=== PATIENT | female | born 1940 | race Caucasian/White ===

== ENCOUNTER 2019-07-04 10:32 | Observation (INO) ==
--- NOTE | 2019-07-04 10:58 | Emergency Department Note ---
ED Disposition Clinical Impression: Urinary tract infection, Renal insufficiency, Lower extremity weakness Disposition: Admitted as Observation Condition on Discharge: Serious Additional Instructions: This patient is accepted by Dr. Avendano of the hospitalist program at [facility] in [place] so she can be followed by her ems director. She will be temporarily admitted here until a bed is available at [facility]. Referrals: Oscar Vang [Primary Care Provider] - - Critical Care Critical Care Time: No Attestation: On , the high probability of a clinically significant, sudden or life threatening deterioration of the following system(s) required my full and direct attention, intervention and personal management. The time I documented below is in addition to time spent performing reported procedures but includes the following listed in this critical care notation. Medical Decision Making - Medical Records Medical records reviewed: Yes: I reviewed the patient's medical records. - Asher Inquiry Pt receiving controlled substance: No Vital Signs: 07/04/19 10:46 07/04/19 11:13 07/04/19 11:59 Temperature 97.8 F Temperature Source Oral Pulse Rate [Left Radial] 58 L 56 L 61 Respiratory Rate 18 Blood Pressure [Right Arm] 141/58 H 119/48 L 147/59 H Blood Pressure Mean [Right Arm] 85 71 88 Blood Pressure Source [Right Arm] Automatic Cuff Automatic Cuff Automatic Cuff Blood Pressure Position [Right Arm] Sitting Supine Supine 02 Sat by Pulse Oximetry 98 91 L 100 Oxygen Delivery Method Room Air Room Air Room Air 07/04/19 13:44 07/04/19 15:49 Temperature Temperature Source Pulse Rate [Left Radial] 68 65 Respiratory Rate Blood Pressure [Right Arm] 113/45 L 126/66 Blood Pressure Mean [Right Arm] 67 86 Blood Pressure Source [Right Arm] Automatic Cuff Automatic Cuff Blood Pressure Position [Right Arm] Sitting Sitting 02 Sat by Pulse Oximetry 98 98 Oxygen Delivery Method Room Air Room Air - Lab Data Lab results reviewed: Yes: I reviewed the patient's lab results. Lab Results 07/04/19 11:00: WBC 12.2 H, RBC 3.79 L, Hgb 11.5 L, Hct 35.5 L, MCV 93.7, MCH 30.4, MCHC 32.4, RDW 13.8, Plt Count 345, MPV 8.6, Neut % (Auto) 70.3, Lymph % (Auto) 18.5, [place] % (Auto) 7.8, Eos % (Auto) 2.8, Baso % (Auto) 0.6, Neut # (Auto) 8.5 H, Lymph # (Auto) 2.3, [place] # (Auto) 1.0, Eos # (Auto) 0.3, Baso # (Auto) 0.1 07/04/19 11:00: Sodium 135 L, Potassium 4.2, Chloride 102, Carbon Dioxide 23, Anion Gap 14.2, BUN 56 H, Creatinine 3.29 H, Estimated Creat Clear 21, Estimated GFR 14 L*, Est GFR ( Amer) 16 L*, Glucose 92, Calcium 9.4, Total Bilirubin 0.5, AST 17, ALT 22, Alkaline Phosphatase 64, Troponin I < 0.02, Total Protein 7.3, Albumin 3.0 L, Globulin 4.3 H, Albumin/Globulin Ratio 0.7 L, TSH 2.70 07/04/19 11:00: B-Natriuretic Peptide 31 07/04/19 11:00: Urine Color Yellow, Urine Appearance Clear, Urine pH 5.5, Ur Specific [place] 1.025, Urine Protein Trace, Urine Glucose (UA) Negative, Urine Ketones Negative, Urine Blood 1+, Urine Nitrate Negative, Urine Bilirubin Negative, Urine Urobilinogen 0.2, Ur Leukocyte Esterase 2+ A, Urine RBC 5-10, Urine WBC Tntc, Ur Squamous Epith Cells 3-5, Urine Bacteria 3+ Result diagrams: 07/04/19 11:00 07/04/19 11:00 Orders (Tests/Meds): ORDERS Category Date Time Status Urine Culture Stat Micro 07/04/19 11:00 Received Weakness HPI - General Chief complaint: Weakness Stated complaint: aO 06/29 feet and leg pain, weak Time Seen by Provider: 07/04/19 10:50 Mode of Arrival: Wheelchair Limitations: Physical Limitations Description of Symptoms (Recalled from ER Triage Doc. by RN): Pt states that she fell on Monday, denies any injury, states she feels "weak" and her feet feel numb - History of Present Illness HPI Narrative: 79-year old obese female fell from standing 3 days ago. Patient complains of generalized weakness worse in the lower extremities and numbness in the feet. MD Complaint: generalized weakness, focal weakness (And feet bilaterally), numbness (In feet bilaterally) Onset (ago): day(s) (3) Duration: constant Migration: none Severity: moderate Relieving factors: none Exacerbating factors: none Context: trauma/injury Associated symptoms: denies other symptoms - Related Data Home Medications Medication Instructions Recorded Confirmed Cefdinir [Omnicef 300mg Capsule] 300 mg PO BID 07/04/19 07/04/19 Lisinopril [Lisinopril 20mg Tab] 20 mg PO DAILY 07/04/19 07/04/19 Metoprolol Tartrate [Lopressor 100 mg PO DAILY 07/04/19 07/04/19 100mg Tablet] Allergies Allergy/AdvReac Type Severity Reaction Status Date / Time No Known Allergies Allergy Verified 07/04/19 10:50 [facility] History - Hepatitis A Screen Drug use history?: No High risk sexual behaviors?: No History of sexually transmitted infection?: No Currently employed?: No Childcare worker?: No Do you have indoor plumbing?: Yes Do you have electricity?: Yes Attestation statement:: This patient has been screened for Hepatitis A risk factors. I have reviewed the patient's past medical history: Yes Medical History: Reports:: Hypertension - Social History Alcohol Intake: never Occupational Status: retired ROS Obtained: Yes All systems reviewed & no additional complaints - Constitutional Constitutional: Reports fatigue, Reports malaise - Eyes Eyes: Reports system reviewed and no additional complaints, except as docu - ENT Ears, Nose, Mouth, and Throat: Reports system reviewed and no additional complaints, except as docu - Cardiovascular Cardiovascular: Reports system reviewed and no additional complaints, except as docu - Respiratory Respiratory: Yes system reviewed and no additional complaints, except as docu - Gastrointestinal Gastrointestingal: Reports: system reviewed and no additional complaints, except as docu - Genitourinary Female Genitourinary: Reports system reviewed and no additional complaints, except as docu - Musculoskeletal Musculoskeletal: Reports back pain, Reports muscle weakness - Integumentary/Breasts Skin/Breast: Reports system reviewed and no additional complaints, except as docu - Neurologic Neurologic: Reports focal weakness (To lower extremities bilaterally equally), Reports numbness (Feet bilaterally) - Endocrine Endocrine: Reports system reviewed and no additional complaints, except as docu - Hematologic/Lymphatic Henatologic/Lymphatic: Reports system reviewed and no additional complaints, except as docu - Allergic/Immunologic Allergic/Immunologic: Reports system reviewed and no additional complaints, except as docu Physical Exam - General General appearance: alert, in no apparent distress - Head Head exam: atraumatic, normocephalic, normal inspection - Eye Eye exam: Present: normal appearance, PERRL, EOMI - ENT ENT exam: Present: normal exam, normal oropharynx, mucous membranes moist - Chest Chest inspection: Present: normal inspection, symmetric chest wall rise. Absent: tenderness - Respiratory Respiratory exam: Present: normal lung sounds bilaterally. Absent: respiratory distress - Cardiovascular Cardiovascular exam: Present: regular rate, normal rhythm, normal heart sounds. Absent: JVD - Abdominal Exam Abdominal exam: Present: soft, normal bowel sounds. Absent: distention, tenderness, guarding, rebound, rigidity - Rectal Exam Rectal exam: Present: normal inspection, normal rectal tone. Absent: black stool, bloody stool, fecal impaction, hemorrhoids, mass, tenderness - Extremities Exam Extremities exam: Present: normal inspection, full ROM, normal capillary refill, pedal edema. Absent: tenderness, calf tenderness - Back Exam Back exam: Present: normal inspection. Absent: tenderness - Neurological Exam Neurological exam: Present: alert, oriented X3, CN II-XII intact, reflexes normal. Absent: motor sensory deficit
[2019-07-04 11:19] LABS: Basophils # 0.1 K/mm3 (0-0.2); Basophils % 0.6 % (0.1-2.0); Eosinophils # 0.3 K/mm3 (0.0-0.4); Eosinophils % 2.8 % (0.1-12.0); Hematocrit 35.5 % (37.0-47.0); Hemoglobin 11.5 g/dL (12.2-16.2); Lymphocytes # 2.3 K/mm3 (0.7-4.5); Lymphocytes % 18.5 % (10-50); Mean Corpuscular HGB Conc 32.4 g/dL (31.8-35.4); Mean Corpuscular Volume 93.7 fl (81-99); Mean Platelet Volume 8.6 fl (7.4-10.4); Monocytes % 7.8 % (1.7-9.3); Neutrophils # 8.5 K/mm3 (1.8-7.8); Neutrophils % 70.3 % (37.0-80.0); Platelet Count 345 K/mm3 (142-424); Red Blood Count 3.79 M/mm3 (4.20-5.40); Red Cell Distribution Width 13.8 % (11.5-17.5); White Blood Count 12.2 K/mm3 (4.8-10.8)
[2019-07-04 11:43] LABS: Alanine Aminotransferase 22 U/L (12-78); Albumin/Globulin Ratio 0.7 (1.1-1.8); Alkaline Phosphatase 64 U/L (46-116); Anion Gap 14.2 mEq/L (5-15); Aspartate Amino Transferase 17 U/L (15-37); Bilirubin,Total 0.5 mg/dL (0.2-1.0); Blood Urea Nitrogen 56 mg/dL (7-18); Calcium 9.4 mg/dL (8.5-10.1); Carbon Dioxide 23 mmol/L (21.0-32.0); Chloride 102 mmol/L (98-107); Globulin 4.3 gm/dl (1.3-3.2); Glucose 92 mg/dL (74-106); Sodium 135 mmol/L (136-145); Total Protein,Serum 7.3 gm/dL (6.4-8.2)
[2019-07-04 12:16] LABS: Microscopic, Urine URINE MICROSCOPIC (MICROSCOPIC)
[2019-07-04 12:27] LABS: Appearance,Urine CLEAR (Clear); Bilirubin,Urine Negative (Negative); Blood, Urine 1+ (Negative); Color,Urine YELLOW (Yellow); Glucose,Urine (UA) Negative (Negative); Ketones,Urine Negative (Negative); Leukocyte Esterase,Urine 2+ (Negative); PH,Urine 5.5 (5.0-8.5); Protein,Urine TRACE (Negative); Specific Gravity, Urine 1.025 (1.005-1.030); Urobilinogen,Urine 0.2 EU/dl (0.2)
[2019-07-04 12:46] LABS: Bacteria,Urine 3+ /lpf; WBC,Urine TNTC #/hpf (0-3)
--- NOTE | 2019-07-04 17:48 | History & Physical Report ---
*Admission Date: 07/04/19 *Chief complaint: UTI, weakness *History of present illness: Kera is a 79-year-old female with reported history of some chronic kidney disease, unknown stage, and hypertension who presented to the ER due to worsening weakness over the past week. She states that over the weekend she felt more weak and actually had a fall. She initially went to [facility] where she was diagnosed with a UTI. She additionally had a CT scan of her abdomen and pelvis. They initiated her on oral Bactrim and sent her home for treatment of her UTI. She states that after getting home she has not gotten up from her chair other than to go to the bathroom and a bedside commode. She is continue to take her lisinopril, Bactrim, had poor p.o. fluid intake. Her family at bedside states her urine has been dark through most of the week. She additionally has had some swelling and edema in her lower extremities worse over the past week. She presented today to [facility] due to persistent weakness. On initial assessment to the ER she stated her feet have been feeling numb and painful. Her initial work-up was concerning for UA positive for leuk esterase and nitrite. Significant YULIANA with elevated BUN and creatinine. She was started on broad-spectrum antibiotics and IV fluids. Initially [facility] was contacted for possible transfer and assessment by yard laborer. They were unable to accept the patient hadat this time so patient was admitted to medicine for further management awaiting possible transfer. On assessment, patient is otherwise hemodynamically stable. Denies any shortness of breath or chest pain. Has light yellow urine in her Goel which is improved since IV hydration. Aside from YULIANA and UTI findings, patient otherwise stable. She states she would prefer to stay here for treatment if possible. Denies nausea, vomiting, chest pain, shortness of breath. May have had some loose stools after starting antibiotics over the past few days. Is alert and oriented to person and place and time. [facility] History I have reviewed the patient's past medical history: Yes Medical History: Reports:: Hypertension Denies:: Congestive Heart Failure, Chronic Obstructive Pulmonary Disease (COPD) *Have you ever received a pneumonia vaccine?: No *Have you received a flu vaccine this season?: No - *Social History Alcohol Intake: never *Occupational Status:: retired Household Members: children *Travel in the last 8 weeks: None Family Hx:: Non-contributory Review of Systems - Review of Systems Review of systems:: pertinent systems reviewed and negative unless documented below - *Neurologic Reports localized weakness (To lower extremities bilaterally equally), Reports numbness (Feet bilaterally) Meds Home Medications Medication Instructions Recorded Confirmed Type Cefdinir [Omnicef 300mg Capsule] 300 mg PO BID 07/04/19 07/04/19 History Lisinopril [Lisinopril 20mg Tab] 20 mg PO HS 07/04/19 07/04/19 History Metoprolol Tartrate [Lopressor 100 mg PO HS 07/04/19 07/04/19 History 100mg Tablet] Allergies Allergy/AdvReac Type Severity Reaction Status Date / Time No Known Allergies Allergy Verified 07/04/19 10:50 Exam Vital signs and Labs for Last 24 Hours: Temp Pulse Resp BP Pulse Ox 98.4 F 80 18 135/57 L 100 07/04/19 17:16 07/04/19 17:16 07/04/19 17:16 07/04/19 17:16 07/04/19 17:16 Laboratory Results - last 24 hr 07/04/19 11:00: WBC 12.2 H, RBC 3.79 L, Hgb 11.5 L, Hct 35.5 L, MCV 93.7, MCH 30.4, MCHC 32.4, RDW 13.8, Plt Count 345, MPV 8.6, Neut % (Auto) 70.3, Lymph % (Auto) 18.5, [place] % (Auto) 7.8, Eos % (Auto) 2.8, Baso % (Auto) 0.6, Neut # (Auto) 8.5 H, Lymph # (Auto) 2.3, [place] # (Auto) 1.0, Eos # (Auto) 0.3, Baso # (Auto) 0.1 07/04/19 11:00: Sodium 135 L, Potassium 4.2, Chloride 102, Carbon Dioxide 23, Anion Gap 14.2, BUN 56 H, Creatinine 3.29 H, Estimated Creat Clear 21, Estimated GFR 14 L*, Est GFR ( Amer) 16 L*, Glucose 92, Calcium 9.4, Total Bilirubin 0.5, AST 17, ALT 22, Alkaline Phosphatase 64, Troponin I < 0.02, Total Protein 7.3, Albumin 3.0 L, Globulin 4.3 H, Albumin/Globulin Ratio 0.7 L, TSH 2.70 07/04/19 11:00: B-Natriuretic Peptide 31 07/04/19 11:00: Urine Color Yellow, Urine Appearance Clear, Urine pH 5.5, Ur Specific [place] 1.025, Urine Protein Trace, Urine Glucose (UA) Negative, Urine Ketones Negative, Urine Blood 1+, Urine Nitrate Negative, Urine Bilirubin Negative, Urine Urobilinogen 0.2, Ur Leukocyte Esterase 2+ A, Urine RBC 5-10, Urine WBC Tntc, Ur Squamous Epith Cells 3-5, Urine Bacteria 3+ I & O for Last 24 hours: Intake & Output 07/01/19 07/02/19 07/03/19 07/04/19 23:59 23:59 23:59 23:59 Weight 95.765 kg - Constitutional no acute distress, obese - *Routine HEENT Exam Head: Present: normocephalic Eye: Present: EOMI, PERRL ENT: Present: mucous membranes moist - *Routine Neck Exam Present: supple. Absent: lymphadenopathy - *Routine Respiratory Exam Present: CTA bilaterally - *Routine Cardiovascular Exam Present: RRR - *Routine Abdominal Exam Present: soft, normoactive bowel sounds. Absent: tenderness - *Routine Extremities Exam Present: edema (2+ to knees bilaterally). Absent: cyanosis, clubbing - Routine Back/Spine/Pelvis Exam Back/Spine: Absent: CVA tenderness - *Routine Skin Exam Present: warm. Absent: rash - *Routine Neurological Exam Present: alert, oriented X3 Assessment and Plan (1) YULIANA (acute kidney injury) Current visit: Yes Status: Acute Category: Medical Code(s): N17.9 - Acute kidney failure, unspecified Unclear etiology at this time however suspect prerenal versus nephrotoxins as an etiology. Patient had poor fluid intake, received IV contrast for an image earlier this week, was on Bactrim for an antibiotic which can have nephrotoxic effects, and continue her lisinopril. Suspect the combo of these therapies may have been detrimental to her kidney function. Will provide gentle rehydration and reassess kidney function every 12 for now. We will also obtain labs from [facility] from earlier this week to see how her kidney function has changed. Unknown baseline and status of CKD. At this time feel patient is within the ability of our institution to handle. Unless she has worsening kidney function, oliguria, and urea, will hold on transfer as it is her preference to stay local as this is closer to her family. (2) Hypertension Current visit: Yes Status: Chronic Qualifiers: Hypertension type: essential hypertension Qualified Code(s): I10 - Essential (primary) hypertension Category: Medical Code(s): I10 - Essential (primary) hypertension Hold lisinopril in setting of YULIANA. Continue metoprolol. (3) Class 2 obesity Current visit: Yes Status: Chronic Category: Medical Code(s): E66.9 - Obesity, unspecified Complicates all aspects of her care (4) Lower extremity weakness Current visit: Yes Status: Acute Qualifiers: Laterality: bilateral Qualified Code(s): R29.898 - Other symptoms and signs involving the musculoskeletal system Category: Medical Code(s): R29.898 - Other symptoms and signs involving the musculoskeletal system Worsening over the past week. Will obtain imaging from [facility]. PT consult placed, appreciate recommendations (5) Urinary tract infection Current visit: Yes Status: Acute Qualifiers: Urinary tract infection type: acute cystitis Category: Medical Code(s): N39.0 - Urinary tract infection, site not specified Initiated IV Zosyn. Urine culture obtained. We will also obtain results from [facility] from earlier this week. De-escalate antibiotics pending results and sensitivities - Assessment and plan all Dx Assessment and Plan for all problems:: 79-year-old female with unknown stage chronic kidney disease who presents with YULIANA and UTI. Treatment as per above. Patient's condition is guarded. Prognosis fair.
[2019-07-04 20:09] LABS: Anion Gap 13.1 mEq/L (5-15)
[2019-07-05 06:59] LABS: Basophils % 0.3 % (0.1-2.0); Eosinophils # 0.3 K/mm3 (0.0-0.4); Eosinophils % 2.8 % (0.1-12.0); Hematocrit 30.7 % (37.0-47.0); Lymphocytes # 1.5 K/mm3 (0.7-4.5); Lymphocytes % 17.2 % (10-50); Mean Corpuscular Volume 93.6 fl (81-99); Mean Platelet Volume 8.1 fl (7.4-10.4); Monocytes # 0.6 K/mm3 (0.1-1.0); Monocytes % 6.8 % (1.7-9.3); Neutrophils # 6.5 K/mm3 (1.8-7.8); Neutrophils % 72.9 % (37.0-80.0); Platelet Count 260 K/mm3 (142-424); Red Blood Count 3.28 M/mm3 (4.20-5.40); Red Cell Distribution Width 13.8 % (11.5-17.5); White Blood Count 8.9 K/mm3 (4.8-10.8)
[2019-07-05 07:06] LABS: Albumin Level 2.3 gm/dL (3.4-5.0); Albumin/Globulin Ratio 0.6 (1.1-1.8); Anion Gap 13.4 mEq/L (5-15); Bilirubin,Total 0.5 mg/dL (0.2-1.0); Calcium 8.6 mg/dL (8.5-10.1); Globulin 3.7 gm/dl (1.3-3.2)
[2019-07-05 07:10] LABS: Hemoglobin 9.9 g/dL (12.2-16.2)
--- NOTE | 2019-07-05 07:46 | Pharmacy Consult Notes ---
[facility] Pharmacy VTE Monitoring - Patient Demographics Admission date: 07/05/19 Report Date: 07/05/19 Time: 07:46 Allergies/Adverse Reactions: Patient Allergies No Known Allergies Allergy (Verified 07/04/19 10:50) Height: 1.6 m Weight: 94.517 kg Patient Problems: Current Active Problems Urinary tract infection (Acute) Renal insufficiency (Acute) Lower extremity weakness (Acute) YULIAAN (acute kidney injury) (Acute) Hypertension (Chronic) Class 2 obesity (Chronic) - VTE Risk Labs: VTE Related Lab Results Hgb 9.9 g/dL (12.2-16.2) L D 07/05/19 06:35 Hct 30.7 % (37.0-47.0) L 07/05/19 06:35 Plt Count 260 K/mm3 (142-424) 07/05/19 06:35 BUN 53 mg/dL (7-18) H 07/05/19 06:35 Creatinine 3.02 mg/dL (0.55-1.02) H 07/05/19 06:35 Estimated Creat Clear 23 mL/min (50-200) 07/05/19 06:35 Clinical Trial Participant: No - Prophylaxis VTE Prophylaxis Ordered?: Yes Types of VTE Prophylaxis: TEDS Knee High
--- NOTE | 2019-07-05 07:55 | Progress Note ---
Internal Medicine - PN: Subj *Date: 07/05/19 *Time: 07:50 Interval history: Patient did well overnight. Continues to describe some tingling in her feet but has good sensation when they are touched. Denies chest pain, shortness of breath, nausea, diarrhea. Kidney function slightly better this morning on labs. Able to obtain some lab results from [facility]. Baseline creatinine a year ago was 1.6. Patient having good urine output. Tolerating breakfast with out incident. Exam Vital signs and Labs for Last 24 Hours: Temp Pulse Resp BP Pulse Ox 98.7 F 76 18 115/42 L 95 07/05/19 04:00 07/05/19 04:00 07/05/19 04:00 07/05/19 04:00 07/05/19 04:00 Laboratory Results - last 24 hr 07/04/19 11:00: WBC 12.2 H, RBC 3.79 L, Hgb 11.5 L, Hct 35.5 L, MCV 93.7, MCH 30.4, MCHC 32.4, RDW 13.8, Plt Count 345, MPV 8.6, Neut % (Auto) 70.3, Lymph % (Auto) 18.5, [place] % (Auto) 7.8, Eos % (Auto) 2.8, Baso % (Auto) 0.6, Neut # (Auto) 8.5 H, Lymph # (Auto) 2.3, [place] # (Auto) 1.0, Eos # (Auto) 0.3, Baso # (Auto) 0.1 07/04/19 11:00: Sodium 135 L, Potassium 4.2, Chloride 102, Carbon Dioxide 23, Anion Gap 14.2, BUN 56 H, Creatinine 3.29 H, Estimated Creat Clear 21, Estimated GFR 14 L*, Est GFR ( Amer) 16 L*, Glucose 92, Calcium 9.4, Total Bilirubin 0.5, AST 17, ALT 22, Alkaline Phosphatase 64, Troponin I < 0.02, Total Protein 7.3, Albumin 3.0 L, Globulin 4.3 H, Albumin/Globulin Ratio 0.7 L, TSH 2.70 07/04/19 11:00: B-Natriuretic Peptide 31 07/04/19 11:00: Urine Color Yellow, Urine Appearance Clear, Urine pH 5.5, Ur Specific [place] 1.025, Urine Protein Trace, Urine Glucose (UA) Negative, Urine Ketones Negative, Urine Blood 1+, Urine Nitrate Negative, Urine Bilirubin Negative, Urine Urobilinogen 0.2, Ur Leukocyte Esterase 2+ A, Urine RBC 5-10, Urine WBC Tntc, Ur Squamous Epith Cells 3-5, Urine Bacteria 3+ 07/04/19 19:54: Sodium 138, Potassium 4.1, Chloride 105, Carbon Dioxide 24, Anion Gap 13.1, BUN 57 H, Creatinine 3.26 H, Estimated Creat Clear 21, Estimated GFR 14 L*, Est GFR ( Amer) 17 L*, Glucose 159 H D, Calcium 9.0 07/05/19 06:35: WBC 8.9 D, RBC 3.28 L, Hgb 9.9 L D, Hct 30.7 L, MCV 93.6, MCH 30.0, MCHC 32.0, RDW 13.8, Plt Count 260, MPV 8.1, Neut % (Auto) 72.9, Lymph % (Auto) 17.2, [place] % (Auto) 6.8, Eos % (Auto) 2.8, Baso % (Auto) 0.3, Neut # (Auto) 6.5, Lymph # (Auto) 1.5, [place] # (Auto) 0.6, Eos # (Auto) 0.3, Baso # (Auto) 0.0 07/05/19 06:35: Sodium 138, Potassium 4.4, Chloride 107, Carbon Dioxide 22, Anion Gap 13.4, BUN 53 H, Creatinine 3.02 H, Estimated Creat Clear 23, Estimated GFR 15 L*, Est GFR ( Amer) 18 L*, Glucose 90 D, Calcium 8.6, Magnesium 1.4, Total Bilirubin 0.5, AST 9 L D, ALT 16 D, Alkaline Phosphatase 55, Total Protein 6.0 L, Albumin 2.3 L D, Globulin 3.7 H, Albumin/Globulin Ratio 0.6 L I & O for Last 24 hours: Intake & Output 07/02/19 07/03/19 07/04/19 07/05/19 23:59 23:59 23:59 23:59 Intake Total 848 / 848 Output Total 850 / 850 Balance -2 / -2 Weight 95.765 kg 94.517 kg Narrative: - Constitutional no acute distress, obese - *Routine HEENT Exam Head: Present: normocephalic Eye: Present: EOMI, PERRL ENT: Present: mucous membranes moist - *Routine Neck Exam Present: supple. Absent: lymphadenopathy - *Routine Respiratory Exam Present: CTA bilaterally - *Routine Cardiovascular Exam Present: RRR - *Routine Abdominal Exam Present: soft, normoactive bowel sounds. Absent: tenderness - *Routine Extremities Exam Present: edema (2+ to knees bilaterally). Absent: cyanosis, clubbing - Routine Back/Spine/Pelvis Exam Back/Spine: Absent: CVA tenderness - *Routine Skin Exam Present: warm. Absent: rash - *Routine Neurological Exam Present: alert, oriented X3, sensation intact in BL feet Assessment and Plan (1) Hypertension Current visit: Yes Status: Chronic Qualifiers: Hypertension type: essential hypertension Qualified Code(s): I10 - Essential (primary) hypertension Category: Medical Code(s): I10 - Essential (primary) hypertension (2) Class 2 obesity Current visit: Yes Status: Chronic Category: Medical Code(s): E66.9 - Obesity, unspecified (3) Lower extremity weakness Current visit: Yes Status: Acute Qualifiers: Laterality: bilateral Qualified Code(s): R29.898 - Other symptoms and signs involving the musculoskeletal system Category: Medical Code(s): R29.898 - Other symptoms and signs involving the musculoskeletal system (4) Urinary tract infection Current visit: Yes Status: Acute Qualifiers: Urinary tract infection type: acute cystitis Category: Medical Code(s): N39.0 - Urinary tract infection, site not specified (5) Acute kidney injury superimposed on CKD Current visit: Yes Status: Acute Category: Medical Code(s): N17.9 - Acute kidney failure, unspecified; N18.9 - Chronic kidney disease, unspecified - Assessment and plan all Dx Assessment and Plan for all problems:: 79-year-old with YULIANA on CKD. UTI present. Continue IV antibiotics for UTI due to failure of outpatient therapy. Slight improvement in kidney function this morning. Baseline approximately 1.6, will continue to monitor with labs every 12. Continue gentle rehydration. Caution with nephrotoxic's. We will continue to try and obtain records from previous providers to establish better clinical picture of patient's baseline status. Condition guarded, prognosis fair. Continues to require inpatient management.
[2019-07-05 18:35] LABS: Anion Gap 13.8 mEq/L (5-15)
[2019-07-06 06:35] LABS: Basophils % 0.5 % (0.1-2.0); Eosinophils # 0.3 K/mm3 (0.0-0.4); Eosinophils % 2.8 % (0.1-12.0); Hematocrit 32.1 % (37.0-47.0); Hemoglobin 10.2 g/dL (12.2-16.2); Lymphocytes # 1.4 K/mm3 (0.7-4.5); Lymphocytes % 15.2 % (10-50); Mean Corpuscular HGB Conc 31.7 g/dL (31.8-35.4); Mean Corpuscular Volume 95.6 fl (81-99); Monocytes # 0.7 K/mm3 (0.1-1.0); Neutrophils % 74.4 % (37.0-80.0); Platelet Count 258 K/mm3 (142-424); Red Blood Count 3.36 M/mm3 (4.20-5.40); Red Cell Distribution Width 13.6 % (11.5-17.5); White Blood Count 9.4 K/mm3 (4.8-10.8)
[2019-07-06 06:43] LABS: Anion Gap 11.4 mEq/L (5-15); Calcium 8.8 mg/dL (8.5-10.1)
--- NOTE | 2019-07-06 08:29 | Discharge Summary ---
General - General Admission date:: 07/04/19 Discharge date: 07/06/19 HPI HPI: Kera is a 79-year-old female with reported history of some chronic kidney disease, unknown stage, and hypertension who presented to the ER due to worsening weakness over the past week. She states that over the weekend she felt more weak and actually had a fall. She initially went to [facility] where she was diagnosed with a UTI. She additionally had a CT scan of her abdomen and pelvis. They initiated her on oral Bactrim and sent her home for treatment of her UTI. She states that after getting home she has not gotten up from her chair other than to go to the bathroom and a bedside commode. She is continue to take her lisinopril, Bactrim, had poor p.o. fluid intake. Her family at bedside states her urine has been dark through most of the week. She additionally has had some swelling and edema in her lower extremities worse over the past week. She presented today to ER due to persistent weakness. On initial assessment to the ER she stated her feet have been feeling numb and painful. Her initial work-up was concerning for UA positive for leuk esterase and nitrite. Significant YULIANA with elevated BUN and c reatinine. She was started on broad-spectrum antibiotics and IV fluids. Initially [facility] was contacted for possible transfer and assessment by tractor trailer technician. They were unable to accept the patient hadat this time so patient was admitted to medicine for further management awaiting possible transfer. On assessment, patient is otherwise hemodynamically stable. Denies any shortness of breath or chest pain. Has light yellow urine in her Goel which is improved since IV hydration. Aside from YULIANA and UTI findings, patient otherwise stable. She states she would prefer to stay here for treatment if possible. Denies nausea, vomiting, chest pain, shortness of breath. May have had some loose stools after starting antibiotics over the past few days. Is alert and oriented to person and place and time. Hospital Course Hospital Course: Patient was admitted to hospital. Gentle IV fluids were given and nephrotoxic agents were held, including Bactrim and lisinopril. Patient improved in a stepwise fashion vis--vis weakness over the next couple of days. Urine culture was nondiagnostic-although patient had previously been on outpatient antibiotics so this was not surprising. Creatinine levels dropped from her admission level of 3.5 down to 2.6 this morning. Patient felt much better but continued to be weak. Patient achieved maximal medical benefit from hospitalization, so we have arranged home health with agency in [facility], and we will discharge her today with low-dose Augmentin therapy to wrap up treatment for urinary tract infection as she is done very nicely with Zosyn here in the hospital. We will continue to hold her lisinopril and other nephrotoxic agents. She sees Dr. Oscar Vang in [place] and have encouraged her to make a follow-up appointment with him early next week as well as with her nephrology group that she sees in [place]. Objective Vital signs: Temp Pulse Resp BP Pulse Ox 97.7 F 66 18 121/60 99 07/06/19 07:21 07/06/19 07:21 07/06/19 07:21 07/06/19 07:21 07/06/19 07:21 Narrative: Patient is alert. Oriented x3. Awakened from sleep easily. Anterior lung waters are clear. Heart rate regular. Abdomen is soft and nontender. She has no distal perfusion deficits. Able to move arms and legs equally. No cranial nerve deficits. No JVD. No skin lesions or rash visible. Results Labs on day of discharge: Labs from last 24 hours 07/06/19 07/06/19 07/05/19 06:26 06:26 18:00 WBC 9.4 RBC 3.36 L Hgb 10.2 L Hct 32.1 L MCV 95.6 MCH 30.3 MCHC 31.7 L RDW 13.6 Plt Count 258 MPV 9.0 Neut % (Auto) 74.4 Lymph % (Auto) 15.2 [place] % (Auto) 7.0 Eos % (Auto) 2.8 Baso % (Auto) 0.5 Neut # (Auto) 7.0 Lymph # (Auto) 1.4 [place] # (Auto) 0.7 Eos # (Auto) 0.3 Baso # (Auto) 0.0 Sodium 137 136 Potassium 4.4 4.8 Chloride 107 104 Carbon Dioxide 23 23 Anion Gap 11.4 13.8 BUN 47 H 50 H Creatinine 2.65 H 2.86 H Estimated Creat Clear 26 24 Estimated GFR 17 L* 16 L* Est GFR ( Amer) 21 L 19 L* Glucose 91 D 158 H D Calcium 8.8 9.0 Magnesium 1.4 Preliminary micro results at discharge 07/04/19 11:00 Urine Culture - Preliminary Urine,Catheterized NO GROWTH AFTER 24 HOURS DS: Diagnosis - Discharge Diagnosis (1) Hypertension Status: Chronic (2) Class 2 obesity Status: Chronic (3) Lower extremity weakness Status: Acute (4) Urinary tract infection Status: Acute (5) Acute kidney injury superimposed on CKD Status: Acute Discharge Plan - Patient Discharge Instructions ACTIVITY: Up with assistance DIET: continue same diet - Follow up Plan Follow up with: Oscar Vang [Primary Care Provider] - 1 week Disposition: Home Health Service Home Medications: Home Medications Medication Instructions Recorded Confirmed Type Cefdinir [Omnicef 300mg Capsule] 300 mg PO BID 07/04/19 07/04/19 History Lisinopril [Lisinopril 20mg Tab] 20 mg PO HS 07/04/19 07/04/19 History Metoprolol Tartrate [Lopressor 100 mg PO HS 07/04/19 07/04/19 History 100mg Tablet] Simvastatin 40 mg PO HS 07/05/19 07/05/19 History Amoxicillin/Potassium Clav 500 mg PO BID #10 tab 07/06/19 Rx [Augmentin 500mg tab] Prescriptions/Medication Reconciliation: New Amoxicillin/Potassium Clav [Augmentin 500mg tab] 500 mg PO BID #10 tab Continued Metoprolol Tartrate [Lopressor 100mg Tablet] 100 mg PO HS Discontinued Cefdinir [Omnicef 300mg Capsule] 300 mg PO BID Simvastatin 40 mg PO HS Lisinopril [Lisinopril 20mg Tab] 20 mg PO HS - Problem Reconciliation Problems Reviewed?: Yes
== END 2019-07-06 11:30 | disposition home health service (06) ==
LOC: ER 10:32 → 2ND 10:32
PROVIDERS: ADMIT Internal Medicine Adolescent Medicine; ATTEND Internal Medicine Adolescent Medicine
CPT/HCPCS: 36415; 72131; 80048; 80053; 81001; 83735; 83880; 84443; 84484; 85025; 87086; 90686; 96365; 97116; 97162; 97530; 99284; G0008; G0378; J2543

== ENCOUNTER → 2019-07-23 11:01 | Outpatient (CLI) | payer MEDICARE, SELFPAY ==
[2019-07-23 11:07] LABS: Microscopic, Urine URINE MICROSCOPIC (MICROSCOPIC)
[2019-07-23 13:32] LABS: Appearance,Urine SL CLOUDY (Clear); Bilirubin,Urine Negative (Negative); Blood, Urine TRACE-I (Negative); Color,Urine YELLOW (Yellow); Glucose,Urine (UA) Negative (Negative); Ketones,Urine Negative (Negative); Leukocyte Esterase,Urine 1+ (Negative); Nitrate,Urine Negative (Negative); PH,Urine 5.5 (5.0-8.5); Protein,Urine Negative (Negative); Specific Gravity, Urine 1.025 (1.005-1.030); Urobilinogen,Urine 0.2 EU/dl (0.2)
[2019-07-23 13:35] LABS: Basophils # 0.2 K/mm3 (0-0.2); Basophils % 1.2 % (0.1-2.0); Eosinophils # 0.6 K/mm3 (0.0-0.4); Eosinophils % 4.5 % (0.1-12.0); Hemoglobin 12.1 g/dL (12.2-16.2); Lymphocytes # 2.5 K/mm3 (0.7-4.5); Mean Corpuscular HGB Conc 30.2 g/dL (31.8-35.4); Mean Corpuscular Hemoglobin 29.4 pg (27.0-31.2); Mean Corpuscular Volume 97.5 fl (81-99); Mean Platelet Volume 8.5 fl (7.4-10.4); Monocytes # 0.8 K/mm3 (0.1-1.0); Monocytes % 6.5 % (1.7-9.3); Neutrophils # 8.1 K/mm3 (1.8-7.8); Neutrophils % 66.7 % (37.0-80.0); Platelet Count 421 K/mm3 (142-424); Red Cell Distribution Width 13.5 % (11.5-17.5); White Blood Count 12.1 K/mm3 (4.8-10.8)
[2019-07-23 13:40] LABS: Bacteria,Urine Trace /lpf; Calcium Oxalate Crystals,Urine 1+ /lpf; Squamous Epithelial Cell,Urine 20-50 #/hpf (0-5); WBC,Urine 50-100 #/hpf (0-3)
[2019-07-23 14:49] LABS: Anion Gap 21.4 mEq/L (5-15); Carbon Dioxide 22 mmol/L (21.0-32.0); Chloride 104 mmol/L (98-107); Potassium 4.4 mmoL/L (3.5-5.1); Sodium 143 mmol/L (136-145)
[2019-07-23 14:52] LABS: Alanine Aminotransferase 15 U/L (12-78); Albumin Level 3.1 gm/dL (3.4-5.0); Albumin/Globulin Ratio 0.7 (1.1-1.8); Alkaline Phosphatase 55 U/L (46-116); Aspartate Amino Transferase 10 U/L (15-37); Bilirubin,Total 0.4 mg/dL (0.2-1.0); Blood Urea Nitrogen 37 mg/dL (7-18); Calcium 9.8 mg/dL (8.5-10.1); Creatinine,Serum 1.86 mg/dL (0.55-1.02); Estimated Glomerular Filt Rate 26 ml/min (>60); GFR (African American) 32 ML/MIN (>60); Globulin 4.2 gm/dl (1.3-3.2); Glucose 85 mg/dL (74-106); Total Protein,Serum 7.3 gm/dL (6.4-8.2)
== END ==
LOC: LAB.CARL 11:04 → LAB.DROPOF 11:08
PROVIDERS: PCP Family Medicine; Visit Provider Family Medicine
DX: N39.0 Urinary tract infection, site not specified (principal)
CPT/HCPCS: 80053; 81001; 85025; 87086

== ENCOUNTER → 2019-08-23 10:06 | Outpatient (CLI) | payer MEDICARE, SELFPAY ==
[2019-08-23 10:14] LABS: Microscopic, Urine URINE MICROSCOPIC (MICROSCOPIC)
[2019-08-23 14:30] LABS: Bilirubin,Urine Negative (Negative); Blood, Urine 1+ (Negative); Color,Urine YELLOW (Yellow); Glucose,Urine (UA) Negative (Negative); Ketones,Urine Negative (Negative); Leukocyte Esterase,Urine 2+ (Negative); Nitrate,Urine Negative (Negative); PH,Urine 5.5 (5.0-8.5); Protein,Urine Negative (Negative); Specific Gravity, Urine 1.015 (1.005-1.030); Urobilinogen,Urine 0.2 EU/dl (0.2)
[2019-08-23 14:44] LABS: Appearance,Urine Cloudy (Clear)
[2019-08-23 14:52] LABS: Bacteria,Urine 3+ /lpf; WBC,Urine TNTC #/hpf (0-3)
== END ==
PROVIDERS: Visit Provider Family Medicine
DX: N39.0 Urinary tract infection, site not specified (principal)
CPT/HCPCS: 81001; 87086; 87088; 87186

== ENCOUNTER → 2019-09-13 11:58 | Outpatient (CLI) | payer MEDICARE, SELFPAY ==
[2019-09-13 12:01] LABS: Microscopic, Urine URINE MICROSCOPIC (MICROSCOPIC)
[2019-09-13 14:08] LABS: Appearance,Urine CLOUDY (Clear); Bilirubin,Urine Negative (Negative); Blood, Urine 2+ (Negative); Color,Urine YELLOW (Yellow); Glucose,Urine (UA) Negative (Negative); Ketones,Urine Negative (Negative); Leukocyte Esterase,Urine 2+ (Negative); Nitrate,Urine Negative (Negative); Protein,Urine 1+ (Negative); Specific Gravity, Urine 1.025 (1.005-1.030); Urobilinogen,Urine 0.2 EU/dl (0.2)
[2019-09-13 15:21] LABS: Bacteria,Urine 1+ /lpf; WBC,Urine TNTC #/hpf (0-3)
== END ==
PROVIDERS: Visit Provider Family Medicine
DX: N39.0 Urinary tract infection, site not specified (principal); B95.2 Enterococcus as the cause of diseases classified elsewhere
CPT/HCPCS: 81001; 87086; 87088; 87186

== ENCOUNTER 2022-06-06 13:00 | Outpatient (RCR) | payer MEDICARE, SELFPAY | END 2022-06-06 13:05 | disposition home or self-care (01) | LOC: PT 13:00 | PROVIDERS: PCP Family Medicine; Visit Provider Family Medicine | DX: R60.0 Localized edema (principal) | CPT/HCPCS: 97140; 97163 ==